=== PATIENT | female | born 1935 | race Caucasian/White ===

== ENCOUNTER 2016-07-19 15:49 | Inpatient (IN) | payer MEDICARE, OTHER ==
--- NOTE | ~2016-07-19 | HP ---
History And Physical [place] [id number] [facility] [place]. [address] NAME: IMELDA GOMES PAGE : 34 STATUS : ADM IN PAT#: [id number] AGE: 81 ADM/REG DATE : 07/19/16 MR#: [id number] REPORT SERV DATE: 07/20/16 DICTATED BY: JESÚS KERR DATE: 07/19/16 REPORT STATUS : Draft TRANSCRIBED BY: MODL DATE: 07/19/16 DATE OF ADMISSION: 07/19/2016 CHIEF COMPLAINT: Abdominal pain. HISTORY OF PRESENT ILLNESS: The patient is an 81-year-old female with past medical history of FREDDIE with CKD, followed by Dr. Norris. Additionally, she has history of hypertension, currently hypotensive and reported dementia per family members, who reports having worsening abdominal pain over the last week. Decreased p.o. intake over one to two weeks and overall functional decline over the last few years, most notably over the last month. Today, the patient reports having significant abdominal pain, but this morning was able to report that she did not want to go to the emergency room and fought off EMS that was asked to evaluate her, however, the patient slipped out throughout the night. This afternoon, the patient was still continuing to have abdominal pain, did not resist further evaluation, and was brought to emergency room. Symptoms have been continuous and abdominal in nature, constant, moderate severity, with decreased p.o. intake. Does not report a burning or pressure type pain, but does have a cramping type pain that is not radiating, associated with mild nausea, no vomiting. No fever, chills, or shortness of breath. Symptoms are worsened with palpation and relieved only by rest. The patient has had symptoms that are still currently present and reproducible. The patient does not quite respond to majority of questions at this time due to encephalopathy, but per family. REVIEW OF SYSTEMS: GENERAL: The patient has not had any fevers or chills. EYES: No visual change or pain reported. ENT: No sore throat or congestion reported. NEURO: No headache, but does have a history of dementia with acute confusion. SKIN: No rashes, but does have occasional bruising. RESPIRATORY: No shortness of breath or dyspnea on exertion. CV: No chest pain or palpitations. GI: Does have nausea, but no vomiting and does have abdominal pain. No dark stools. : No dysuria or urgency reported. MUSCULOSKELETAL: Does have atrophy of muscles, but no myalgias or arthralgias. ENDO: Increased fatigue, but no polyuria. HEME: No bleeding or petechiae. IMMUNOLOGIC: No rhinorrhea. PSYCH: No anxiety, but does have acute confusion. PAST MEDICAL HISTORY: Right eye, loss of vision with cataracts, reflux, hypertension, thyroid disease, CKD followed by Dr. Norris. FAMILY HISTORY: Noted for strokes and dialysis with family member also having transplant, heart disease, and hypertension. SOCIAL HISTORY: . No smoking. Does currently still use smokeless tobacco. No alcohol or illicits. History And Physical [address] [address] NAME: IMELDA GOMES PAGE : 34 STATUS : ADM IN [facility]#: [id number] AGE: 81 ADM/REG DATE : 07/19/16 MR#: [id number] REPORT SERV DATE: 07/20/16 DICTATED BY: JESÚS KERR DATE: 07/19/16 REPORT STATUS : Draft TRANSCRIBED BY: JAMEL DATE: 07/19/16 SURGERIES: Gallbladder and shoulder surgery to the family's best knowledge. MEDICATIONS: Tylenol, Norvasc was reduced to 2.5 daily from 5 b.i.d., Colace, BiDil, KCl. ALLERGIES: NO KNOWN DRUG ALLERGIES. PHYSICAL EXAMINATION: VITAL SIGNS: The patient's blood pressure 93/38 improved to 94/50, temperature 96.4, pulse 64, respirations 25 on 92% on room air. GENERAL: Frail, no acute distress, but does have mild cachexia and atrophy of temporal region. EYES: Does have right eye asymmetry to the left, chronic, with cataract history. ENT: Dry mucous membranes. Tongue midline. Nares patent. Poor dentition. RESPIRATORY: Initially tachypneic, but has improved with pain control. CHEST: Equal chest expansion. No acute cardiopulmonary findings. CV: Regular rate. No rubs. No pedal edema. GI: Mild tenderness to palpation. Negative rebound. : Deferred. MUSCULOSKELETAL: Atrophied muscle groups. EXTREMITIES: Moves all extremities with equal strength, but weak. SKIN: Warm, dry with mild tenting. LYMPHS: No cervical or supraclavicular lymphadenopathy. HEME: No bleeding. NEURO: Alert to person and family, but not oriented. Difficult to participate with full neuro exam. PSYCH: Calm. LABORATORY DATA: Initial blood glucose 33. ABG; pH of 7.13, pCO2 of 24, pO2 of 116, bicarb 7.9, repeat blood glucose 187. CMP; sodium 143, potassium 5.0, bicarb 9, BUN and creatinine 80 and 8.65, with a chloride of 116, glucose 202. LFTs within normal limits. Lipase 2723. Troponin negative. Lactate 0.9. CBC; WBC count 7.4 with H and H 7.5 and 23.8, MCV 93.[address] abdomen and pelvis, diffuse peripancreatic inflammatory changes suggesting acute pancreatitis pattern, small amount of ascites in pericolic gutters, diffuse infiltration mesenteric fat planes, small amount of pelvic ascites, partially decompressed stomach with a diffusely thickened appearance. Possible pancreatitis versus gastritis. Decompressed ascending, transverse, and descending colon. Limited to colon wall assessment, difficult to exclude underlying diffuse colitis pattern. ASSESSMENT AND PLAN: 1. Acute kidney injury with chronic kidney disease. 2. Acute metabolic acidosis. 3. Acute pancreatitis. 4. Hypoglycemia. 5. Anemia. History And Physical [address] [address] NAME: IMELDA GOMES PAGE : 34 STATUS : ADM IN [facility]#: [id number] AGE: 81 ADM/REG DATE : 07/19/16 MR#: [id number] REPORT SERV DATE: 07/20/16 DICTATED BY: JESÚS KERR DATE: 07/19/16 REPORT STATUS : Draft TRANSCRIBED BY: MODL DATE: 07/19/16 6. Failure to thrive. 7. Hypertension, with relative hypotension on arrival. 8. Hypothyroidism. 9. Systemic inflammatory response syndrome. 10.Acute encephalopathy. 11.Hip pain. PLAN: 1. For FREDDIE with CKD, likely secondary to volume depletion secondary to pancreatitis, decreased p.o. intake. Treat acute pancreatitis, colitis. Check lytes, urine lytes, and ultrasound. Has had decreased p.o. over one week. The patient is uremic, acidotic, with acute encephalopathy. Sees Dr. Norris as an outpatient. We will consult Nephrology. The patient is DNR/DNI per family. Reports that this has been the patient's consistent with her prior belief and would not want dialysis. We will do aggressive IV fluids, optimize lytes, and treat underlying pancreatitis and bicarb. 2. Acute metabolic acidosis. Bicarb and IV fluids in an attempt to reverse FREDDIE and treat acute pancreatitis. 3. Acute pancreatitis with abdominal pain. IV fluids. By monitoring the lipase, colitis, and supportive treatment as tolerated. Had gallbladder removal in the past. Currently, Olanta score is 1, however, LDH is still not present, still unable to complete Swetha score currently. SOFA score approximately 6, less than 33% mortality, however, ALATNA II score at 28 with greater than 51% mortality during this hospitalization. 4. Hypoglycemia. D5 half-normal saline, IV fluids. 5. Anemia. Monitor with a.m. labs. Check fecal occult blood test. Likely decompensated secondary to CKD. There are no reported signs and symptoms of blood loss. 6. Failure to thrive. Treat as above. 7. Hypertension with relative hypotension. Hold medications in the presence of FREDDIE and CKD. 8. Hypothyroidism. Off replacement over a year. 9. SIRS with tachypnea and temperature monitor. Her respiratory had already improving after giving IV fluids. Treat above, pancreatitis and FREDDIE. 10.Acute encephalopathy. Treat uremia. Does have baseline dementia. 11.Pain. Follow x-rays. 12.DO NOT RESUSCITATE/DO NOT INTUBATE. I discussed with Dr. Miner and family. The patient is most likely that she was DO NOT RESUSCITATE in the past, which has also been reconfirmed by multiple family members at bedside. Guarded prognosis. Discussed with the patient and family. We will additionally consult Palliative for symptom control and goals of care evaluation. DDN/MODL Jesús Kerr MD History And Physical [address] [place]. [address] NAME: IMELDA GOMES PAGE : 34 STATUS : ADM IN [facility]#: [id number] AGE: 81 ADM/REG DATE : 07/19/16 MR#: [id number] REPORT SERV DATE: 07/20/16 DICTATED BY: JESÚS KERR DATE: 07/19/16 REPORT STATUS : Draft TRANSCRIBED BY: JAMEL DATE: 07/19/16 / [id number] CC: Kwan Bradford M.D.
--- NOTE | ~2016-07-19 | IDS ---
Interim Discharge Summary [facility] [address] [place]. [address] NAME: IMELDA GOMES PAGE : 34 STATUS : [facility]M [facility]#: [id number] AGE: 81 ADM/REG DATE : 07/19/16 MR#: [id number] REPORT SERV DATE: 07/24/16 DICTATED BY: KATHARINA ALDRICH DATE: 07/24/16 REPORT STATUS : Draft TRANSCRIBED BY: MODL DATE: 07/24/16 ADMISSION DATE: 07/19/2016 DISCHARGE DATE: CONSULTING PHYSICIAN: [facility], Dr. Wong. INTERIM DIAGNOSES: 1. Acute kidney injury on chronic kidney disease 4. 2. Acute pancreatitis. 3. Right pneumonia. 4. Left pleural effusion. 5. Status post hypotension with history of hypertension. 6. Acute encephalopathy. 7. Systemic inflammatory response syndrome. 8. Severe protein calorie malnutrition. 9. Status post hypoglycemia. DIAGNOSTIC EXAMS: CAT scan of the abdomen and pelvis showing chronic, stable, 40% insufficiency fractures, T11-T12, diffuse peripancreatic inflammatory changes suggesting acute pancreatitis pattern, small amount of ascites both paracolic gutters and diffuse infiltration of the mesenteric fat planes, small amount of pelvic ascites, partially decompressed stomach with a diffusely thickened appearance, decompressed ascending, transverse, and descending colon, segmental size atelectasis, left posterior lung base. Chest x-ray showing no acute process. Renal ultrasound showing bilateral decreased renal size with renal cortical thinning and increased renal cortical echotexture compatible with aging and a component of medical renal disease, ascites. Right hip x-ray, no evidence of acute abnormality. Repeat chest x-ray showing new patchy consolidation at the right lung base with left basilar atelectasis and small to moderate left pleural fluid, stable enlargement of the cardiac silhouette with atherosclerotic change in the thoracic aorta. HOSPITAL COURSE: Please refer to the H and P done by Dr. Basilio dated 07/19/2016. Briefly, this is an 81-year-old female with a history of CKD, comes in for abdominal pain for one week, poor intake, and functional decline. The patient has CKD 4 and has been following with Dr. Norris and she told him that she does not want any kind of hemodialysis. Over the past week, the patient had a functional decline, poor p.o. intake, increasing abdominal pain, and change in mental status. She was then brought in here and seen by Dr. Basilio where she was found to have an FREDDIE and acute pancreatitis. The creatinine was found to be at 8.65. The patient had a poor urine output and we got Renal involved. They adjusted some of the medications. However, they agreed with us that she has a poor prognosis. Even though the creatinine improved to 6.28, her GFR really did not change. They recommended Hospice and signed off. Meanwhile, we got repeated x-ray because she was having increasing shortness of breath and desaturation and right now is on 5 L of oxygen. She was found to have right-sided pneumonia and started her on antibiotics. Unfortunately, we do not have any sputum to culture. The patient's mental status seems to be somewhat improving when we fixed the acidosis with a bicarb drip and she is able to take ice and sips of water but that is it. We discussed with the patient several times that she would be needing Hospice. They Interim Discharge Summary [address] [address] NAME: IMELDA GOMES PAGE : 34 STATUS : ADM IN [facility]#: [id number] AGE: 81 ADM/REG DATE : 07/19/16 MR#: [id number] REPORT SERV DATE: 07/24/16 DICTATED BY: KATHARINA ALDRICH. DATE: 07/24/16 REPORT STATUS : Draft TRANSCRIBED BY: JAMEL DATE: 07/24/16 saw 3 different hospice company already. They could not make up her mind and they want to see 2 more that goes to [place], [place] so that her PCP, Belkys Garcia, can follow her up as well. So right now we are continuing the supportive measures, monitoring her electrolytes, and kidney function. Hopefully, we can increase the diet and follow up her x- rays. Partner of mine will be following up the patient and hopefully that the patient will be going to Hospice once they decide on which company. RIYA/JAMEL Katharina Aldrich M.D. / [id number] CC: Kwan Bradford M.D.
--- NOTE | ~2016-07-19 | CN ---
Consultation Report [facility] [address] [place]. [address] NAME: IMELDA GOMES PAGE : 34 STATUS : ADM IN [facility]#: [id number] AGE: 81 ADM/REG DATE : 07/19/16 MR#: [id number] REPORT SERV DATE: 07/20/16 DICTATED BY: HERVE SCHAFER DATE: 07/20/16 REPORT STATUS : Draft TRANSCRIBED BY: MODL DATE: 07/20/16 NEPHROLOGY CONSULTATION. DATE OF CONSULTATION: 07/20/2016 REASON FOR CONSULT: Chronic kidney disease with acute kidney injury. HPI: Ms. Gomes is an 81-year-old white female with chronic kidney disease followed in the office of [facility] by Dr. Salo Norris. Her baseline creatinine is 1.8 to 2.2 range since 09/2015. She was last seen in 06/2016, at which time, her creatinine was 2.2 and urine protein to creatinine ratio was 613. She has a history of hypertension and dementia. She was admitted here yesterday with pancreatitis. CT without contrast showed diffuse pancreatitis without hydro. X-ray showed no hip fractures. No urine output is recorded overnight. Her lactate was 0.9 and procalcitonin was 0.30. Today, her creatinine is down to 8.0. Exam is limited because she is having a Hearn catheter placed at the time of the consult. PAST MEDICAL HISTORY: 1. Chronic kidney disease, baseline creatinine 1.8 to 2.2. 2. Proteinuria 613 mg. 3. History of osteoarthritis. 4. Anemia. 5. Hypertension. 6. Hypothyroidism. 7. Dementia. 8. Left eye blindness. MEDICATIONS ON ADMISSION: Amlodipine 2.5 mg daily, Colace, ISDN 20 mg twice a day, hydralazine 37.5 mg twice a day, and potassium 10 mEq daily. FAMILY HISTORY: Significant for ESRD and a family member with a renal transplant. SOCIAL HISTORY: Otherwise not obtainable in the patient's current condition. REVIEW OF SYSTEMS: Otherwise not obtainable in the patient's current condition. PHYSICAL EXAMINATION: VITAL SIGNS: On exam, temperature 97.3, pulse 95, respirations 20, blood pressure 127/59, 95% saturation on 2 L per nasal cannula. GENERAL: She is an ill-appearing elderly white female, who is critically ill. She is in no distress, having Hearn catheter placed by nursing staff. HEENT: Sclerae without icterus. Conjunctivae not injected. Oropharynx is clear. Mucous membranes are dry. No JVD. She has no dyspnea on 2 L per nasal cannula. Consultation Report [place] [address] [place]. [address] NAME: IMELDA GOMES PAGE : 34 STATUS : ADM IN PAT#: [id number] AGE: 81 ADM/REG DATE : 07/19/16 MR#: [id number] REPORT SERV DATE: 07/20/16 DICTATED BY: HERVE SCHAFER DATE: 07/20/16 REPORT STATUS : Draft TRANSCRIBED BY: MODL DATE: 07/20/16 HEART: Regular rate and rhythm on the monitor. ABDOMEN: Thin, soft, nondistended, mildly tender to palpation. EXTREMITIES: Without edema. SKIN: Without rash. MUSCULOSKELETAL: Without active tenosynovitis. NEURO: Deferred. Hearn catheter being placed. LABORATORY DATA: Sodium 146, potassium 4, bicarb 22, BUN 74, creatinine 8.0, GFR 4 mL/minute, calcium 5.8, magnesium 1.5, phosphorus 5.3, albumin 2.2. LFTs were normal. White count 7600, hemoglobin 8.7, and platelets 229,000. INR 1.4. ASSESSMENT AND PLAN: Ms. Gomes has chronic kidney disease, baseline creatinine 1.8 to 2.2, now with acute pancreatitis; acute kidney injury, which appears to be oligoanuric; anemia; hypoalbuminemia; hypocalcemia; hypotension; hypomagnesemia; acute pancreatitis; and anion gap metabolic acidosis. At this point, her acute kidney injury is likely multifactorial related to ATN from renal hypoperfusion due to low blood pressure on arrival possibly from SIRS versus third spacing from pancreatitis and subsequent intravascular volume depletion. Fluid resuscitate with IV fluids and albumin. Long discussion with family. She is not a dialysis candidate with her multiple comorbid illnesses and with family's previous discussions with Dr. Norris of Nephrology. Continue supportive care. Watch labs. Hopeful of renal recovery. Dialysis will not be offered should renal function deteriorate in the next 24 to 48 hours. We will follow closely with you. Appreciate consult. AILYN/JAMEL Herve Schafer M.D. / [id number] CC: Kwan Bradford M.D. Brant Holt, M.D.
--- NOTE | ~2016-07-19 | DS ---
Discharge Summary [place] [address] [facility] [place]. [address] NAME: IMELDA GOMES PAGE : 34 STATUS : ADM IN PAT#: [id number] AGE: 81 ADM/REG DATE : 07/19/16 MR#: [id number] REPORT SERV DATE: 07/26/16 DICTATED BY: MARCELO MONZON DATE: 07/26/16 REPORT STATUS : Draft TRANSCRIBED BY: MODL DATE: 07/26/16 ADMISSION DATE: 07/19/2016 DISCHARGE DATE: 07/26/2016 Please also refer to history of present illness dictated by Dr. Basilio on 07/20/2016. Please refer to interim discharge summary dictated by Dr. Bobby on 07/24/2016. I personally saw this patient only today on 07/26/2016. The patient was admitted by Dr. Basilio on 07/19/2016 and she was seen by Dr. Bobby until today, 07/26/2016. DISCHARGE DIAGNOSES: 1. Acute kidney injury on chronic kidney disease, stage 4 kidney disease, not a candidate for dialysis. 2. Acute pancreatitis. 3. Right-sided pneumonia. 4. Left pleural effusion. 5. Status post hypotension with a history of hypertension. 6. Acute encephalopathy. 7. Systemic inflammatory response syndrome. 8. Status post hypoglycemia. 9. Severe protein-calorie malnourishment. 10.Subclinical hypothyroidism. 11.Overall very poor prognosis, hospice recommended. CONSULTANTS ON THE CASE: Staff Developer, Dr. Wong. HOSPITAL COURSE: Per interim discharge summary dictated by Dr. Bobby. Today, when I saw the patient, the patient's family was looking at different hospices and finally, they chose [facility] per Dr. Belkys Garcia. The patient is going to hospice per recommendation of Nephrology and overall poor prognosis. The patient received six days of antibiotics for her pneumonia, IV Rocephin. We will give her also Ceftin 500 mg every 48 hours, two additional dosages and the doses adjusted per her glomerular filtration rate, which is very low, it is only 6%. The patient was recommended to use her home Norvasc only as needed for systolic blood pressure more than 130 and above. The patient to stop her potassium and other antihypertensive medications. She is okay to take Colace p.r.n. and Tylenol p.r.n. Also, it was recommended to crush medications and give with applesauce, this was discussed with the patient's daughter. She will go home with hospice. Home with [facility]. Everything was discussed with the patient and her daughters. Everything was discussed with Dr. Bobby as well. Discharge Summary [address] [place]. [address] NAME: IMELDA GOMES PAGE : 34 STATUS : ADM IN PAT#: [id number] AGE: 81 ADM/REG DATE : 07/19/16 MR#: [id number] REPORT SERV DATE: 07/26/16 DICTATED BY: MARCELO MONZON DATE: 07/26/16 REPORT STATUS : Draft TRANSCRIBED BY: MODJesus Alberto DATE: 07/26/16 MG/JAMEL Marcelo Monzon M.D. / [id number] CC: Kwan Alvarez M.D. Nathan Chamberlain, M.D.
[~2016-07-19 15:49] MED LIST: AMIT50 PO; BENEFIBER PO; BIDIL20/37 PO; BIST PO; CELEBREX2 PO; DSS PO; DURICEF PO; MCZ25 PO; MIRALAXPKT PO; NORCO1 TA2 PO; NORV5 PO; PR12.5 PO; PR25 PO; PRILOSEC40 MG PO; PROTONIX PO; SYN.025B PO; SYN.05 PO; ULTRAM50 PO; V5 PO; VITAMIN B 12 IM; ZANTAC 75 PO; ZANTAC150 MG PO; ZOFRAN ODT4 MG PO
[2016-07-19 16:27] LABS: BE (BASE EXCESS) -19.6 MEQ/L (0 +/- 2.5); CARBOXYHEMOGLOBIN 1.3 % (0-3); HCO3 (ACTUAL BICARBONATE) 7.9 MEQ/L (23-27); HEMOBLOGIN CONTENT 8.1 G/DL (12-16); INSTRUMENT SERIAL # 8087; METHEMOGLOBIN 0.5 % (0-3); O2 CONTENT 11.2 VOL% (18-24); PCO2 (CO2 TENSION) 24 MMHG (35-45); PO2 (O2 TENSION) 116 MMHG (79-93); SAMPLE Arterial; pH 7.13 (7.37-7.43)
[2016-07-19 16:28] LABS: ALLENS TEST Pos
[2016-07-19] MEDS ORDERED: NORV25 PO (16:30)
[2016-07-19] MEDS ORDERED: T PO (16:31)
[2016-07-19] MEDS ORDERED: KDUR10 PO (16:31)
[2016-07-19] MEDS ORDERED: DSS PO (16:32)
[2016-07-19 16:45] LABS: BASOPHILS 0.1 %; BASOPHILS ABSOLUTE 0.01 10/3/uL (0.0-0.16); EOSINOPHILS 0.1 %; EOSINOPHILS ABSOLUTE 0.01 10/3/uL (0.0-0.53); ER CBC TAT 0 Hrs 08 Mins; IMMATURE GRANULOCYTES 0.7 %; IMMATURE GRANULOCYTES ABSOLUTE 0.05 10/3/uL (0.0-0.11); LYMPHOCYTES 9.8 %; LYMPHOCYTES ABSOLUTE 0.73 10/3/uL (0.67-4.30); MEAN CORPUSCULAR HEMOGLOB 29.4 pg (26.0-34.0); MEAN CORPUSCULAR VOLUME 93.3 fL (80-100); MEAN PLATELET VOLUME 10.4 fL (9.2-13.0); MONOCYTES 2.7 %; NEUTROPHILS 86.6 %; NEUTROPHILS ABSOLUTE 6.43 10/3/uL (2.02-8.40); NUCLEATED RED BLOOD CELLS 0.3 /100WBC (0-0); PLATELET COUNT 261 10/3/uL (150-400); RED CELL COUNT 2.55 10/6/uL (4.0-5.6); WHITE BLOOD CELLS 7.4 10/3/uL (4.5-10.5)
[2016-07-19 16:46] LABS: HEMATOCRIT 23.8 % (36.0-48.0); HEMOGLOBIN 7.5 g/dL (12.0-16.0); MANUAL DIFF NO %; MEAN CORPUS HGB CONC 31.5 g/dL (32.0-36.0); RBC DISTRIBUTION WIDTH 16.7 % (12.0-16.0)
[2016-07-19 16:49] LABS: INTERNATIONAL NORMAL RATI 1.4 UNITS (-); PARTIAL THROMBO TIME 39.8 SEC (22.5-37.2)
[2016-07-19 16:52] LABS: PROTIME (NOT ORD) 16.6 SEC (12.0-14.5)
[2016-07-19 17:04] LABS: ALKALINE PHOSPHATASE 75 U/L (45-117); CHLORIDE, SERUM 116 MMOL/L (96-112); SGOT(AST) 14 U/L (5-40); SODIUM, SERUM 143 MMOL/L (135-148); TOTAL BILIRUBIN 0.4 MG/DL (0-1.2); TROPONIN I <0.02 NG/ML (<0.05)
[2016-07-19 17:07] LABS: A/G RATIO 0.6 (0.7-1.9); ALBUMIN 2.3 G/DL (3.5-5.0); BUN (BLOOD UREA NITROGEN) 80 MG/DL (6-23); CALCIUM, SERUM 6.8 MG/DL (8.5-10.4); CO2 (CARBON DIOXIDE) 9 MMOL/L (24-34); CREATININE 8.65 MG/DL (0.55-1.02); GFR AFRICAN AMERICAN 4 ML/MIN (>=60); GFR NON AFRICAN AMERICAN 4 ML/MIN (>=60); GLOBULIN 3.6 G/DL (2.5-4.1); GLUCOSE, SERUM 202 MG/DL (60-99); LACTATE 0.9 MMOL/L (0.3-2.4); SGPT(ALT) < 6 U/L (5-65); TOTAL PROTEIN 5.9 G/DL (6.0-8.5)
[2016-07-19 17:23] LABS: BAND NEUTROPHILS 15 %; ER DIFF TAT 0 Hrs 46 Mins; LYMPHOCYTES 6 %; LYMPHOCYTES ABSOLUTE (CALC) 0.44 10/3/uL (0.67-4.30); NEUTROPHILS ABSOLUTE (CALC) 6.96 10/3/uL (2.02-8.40); SEGMENTED NEUTROPHIL (0) 79 %; TOTAL NUCLEATED CELLS 100
[2016-07-19 17:24] LABS: PLATELET ESTIMATE ADQ (ADEQUATE); RBC MORPHOLOGY NORM (NORMAL)
[2016-07-20 03:18] LABS: FERRITIN 372 NG/ML (8-252); IRON BINDING CAPACITY 115 MCG/DL (225-410); IRON, SERUM 49 MCG/DL (35-150)
[2016-07-20 05:54] LABS: BASOPHILS 0.1 %; BASOPHILS ABSOLUTE 0.01 10/3/uL (0.0-0.16); EOSINOPHILS 0 %; HEMOGLOBIN 8.7 g/dL (12.0-16.0); IMMATURE GRANULOCYTES 0.3 %; IMMATURE GRANULOCYTES ABSOLUTE 0.02 10/3/uL (0.0-0.11); LYMPHOCYTES 6.9 %; LYMPHOCYTES ABSOLUTE 0.52 10/3/uL (0.67-4.30); MANUAL DIFF NO %; MEAN CORPUS HGB CONC 33.5 g/dL (32.0-36.0); MEAN CORPUSCULAR HEMOGLOB 29.8 pg (26.0-34.0); MEAN PLATELET VOLUME 10.9 fL (9.2-13.0); MONOCYTES 4.6 %; MONOCYTES ABSOLUTE 0.35 10/3/uL (0.21-1.20); NEUTROPHILS 88.1 %; NEUTROPHILS ABSOLUTE 6.68 10/3/uL (2.02-8.40); PLATELET COUNT 229 10/3/uL (150-400); RBC DISTRIBUTION WIDTH 16.4 % (12.0-16.0); RED CELL COUNT 2.92 10/6/uL (4.0-5.6); WHITE BLOOD CELLS 7.6 10/3/uL (4.5-10.5)
[2016-07-20 05:55] LABS: RETICULOCYTE COUNT 1.3 % (0.5-2.5); RETICULOCYTE COUNT ABSOLUTE 36.4 10/3/uL (20.2-119.8)
[2016-07-20 06:14] LABS: ALBUMIN 2.2 G/DL (3.5-5.0); BUN (BLOOD UREA NITROGEN) 74 MG/DL (6-23); CALCIUM, SERUM 5.8 MG/DL (8.5-10.4); CHLORIDE, SERUM 111 MMOL/L (96-112); CHOL/HDL RATIO(NOT ORDER) 2.8 (0-5); CHOLESTEROL 97 MG/DL (< 200); CO2 (CARBON DIOXIDE) 22 MMOL/L (24-34); CREATININE 8.04 MG/DL (0.55-1.02); GFR AFRICAN AMERICAN 5 ML/MIN (>=60); GFR NON AFRICAN AMERICAN 4 ML/MIN (>=60); GLUCOSE, SERUM 148 MG/DL (60-99); HDL CHOLESTEROL 35 MG/DL (> 49); LDL CHOLESTEROL 43 MG/DL (< 130); NON-HDL CHOLESTEROL 62 MG/DL (< 160); PHOSPHORUS, SERUM 5.3 MG/DL (2.5-4.5); PREALBUMIN 4.3 MG/DL (17.0-43.0); SODIUM, SERUM 146 MMOL/L (135-148); TRIGLYCERIDE 98 MG/DL (< 150)
[2016-07-20 22:22] LABS: ASCORBIC ACID (UR NOT ORDER) NEG (NEG); BILIRUBIN, URINE NEGATIVE (NEG); KETONE, URINE NEGATIVE (NEG); LEUKOCYTE ESTERASE(NOT OR TRACE (NEG); WBC (NOT ORDERED) (RFLEX) 9 (0-5)
[2016-07-21 06:02] LABS: A/G RATIO 0.7 (0.7-1.9); ALBUMIN 2.4 G/DL (3.5-5.0); ALKALINE PHOSPHATASE 73 U/L (45-117); CHLORIDE, SERUM 109 MMOL/L (96-112); CO2 (CARBON DIOXIDE) 23 MMOL/L (24-34); GLOBULIN 3.3 G/DL (2.5-4.1); POTASSIUM, SERUM 3.6 MMOL/L (3.5-5.3); SGOT(AST) 14 U/L (5-40); SGPT(ALT) 8 U/L (5-65); SODIUM, SERUM 146 MMOL/L (135-148); TOTAL BILIRUBIN 0.5 MG/DL (0-1.2); TOTAL PROTEIN 5.7 G/DL (6.0-8.5)
[2016-07-21 06:03] LABS: BUN (BLOOD UREA NITROGEN) 69 MG/DL (6-23); CALCIUM, SERUM 6.5 MG/DL (8.5-10.4); CREATININE 7.33 MG/DL (0.55-1.02); GFR AFRICAN AMERICAN 5 ML/MIN (>=60); GFR NON AFRICAN AMERICAN 5 ML/MIN (>=60); GLUCOSE, SERUM 79 MG/DL (60-99)
[2016-07-22 07:32] LABS: BASOPHILS 0.1 %; BASOPHILS ABSOLUTE 0.01 10/3/uL (0.0-0.16); EOSINOPHILS 0.3 %; EOSINOPHILS ABSOLUTE 0.04 10/3/uL (0.0-0.53); HEMATOCRIT 25.5 % (36.0-48.0); HEMOGLOBIN 8.5 g/dL (12.0-16.0); IMMATURE GRANULOCYTES 0.2 %; IMMATURE GRANULOCYTES ABSOLUTE 0.03 10/3/uL (0.0-0.11); LYMPHOCYTES 17.7 %; LYMPHOCYTES ABSOLUTE 2.28 10/3/uL (0.67-4.30); MEAN CORPUS HGB CONC 33.3 g/dL (32.0-36.0); MEAN CORPUSCULAR HEMOGLOB 29.6 pg (26.0-34.0); MEAN CORPUSCULAR VOLUME 88.9 fL (80-100); MEAN PLATELET VOLUME 12.2 fL (9.2-13.0); MONOCYTES 3.3 %; MONOCYTES ABSOLUTE 0.43 10/3/uL (0.21-1.20); NEUTROPHILS 78.4 %; NEUTROPHILS ABSOLUTE 10.11 10/3/uL (2.02-8.40); RBC DISTRIBUTION WIDTH 16.3 % (12.0-16.0); RED CELL COUNT 2.87 10/6/uL (4.0-5.6)
[2016-07-22 07:37] LABS: PLATELET COUNT 139 10/3/uL (150-400); WHITE BLOOD CELLS 12.9 10/3/uL (4.5-10.5)
[2016-07-22 07:38] LABS: MANUAL DIFF NO %
[2016-07-22 07:39] LABS: ALBUMIN 1.9 G/DL (3.5-5.0); BUN (BLOOD UREA NITROGEN) 70 MG/DL (6-23); CHLORIDE, SERUM 109 MMOL/L (96-112); CO2 (CARBON DIOXIDE) 24 MMOL/L (24-34); CREATININE 6.95 MG/DL (0.55-1.02); GFR AFRICAN AMERICAN 6 ML/MIN (>=60); GFR NON AFRICAN AMERICAN 5 ML/MIN (>=60); GLUCOSE, SERUM 104 MG/DL (60-99); PHOSPHORUS, SERUM 4.4 MG/DL (2.5-4.5); POTASSIUM, SERUM 3.8 MMOL/L (3.5-5.3); SODIUM, SERUM 147 MMOL/L (135-148)
[2016-07-23 07:40] LABS: BUN (BLOOD UREA NITROGEN) 69 MG/DL (6-23); CALCIUM, SERUM 7.4 MG/DL (8.5-10.4); CHLORIDE, SERUM 109 MMOL/L (96-112); CO2 (CARBON DIOXIDE) 27 MMOL/L (24-34); CREATININE 6.64 MG/DL (0.55-1.02); GFR AFRICAN AMERICAN 6 ML/MIN (>=60); GFR NON AFRICAN AMERICAN 5 ML/MIN (>=60); GLUCOSE, SERUM 98 MG/DL (60-99); POTASSIUM, SERUM 3.5 MMOL/L (3.5-5.3); SODIUM, SERUM 147 MMOL/L (135-148)
[2016-07-23 07:42] LABS: BASOPHILS 0.1 %; BASOPHILS ABSOLUTE 0.01 10/3/uL (0.0-0.16); EOSINOPHILS 1.3 %; EOSINOPHILS ABSOLUTE 0.16 10/3/uL (0.0-0.53); HEMATOCRIT 26.9 % (36.0-48.0); IMMATURE GRANULOCYTES 0.4 %; IMMATURE GRANULOCYTES ABSOLUTE 0.05 10/3/uL (0.0-0.11); LYMPHOCYTES 21.9 %; LYMPHOCYTES ABSOLUTE 2.78 10/3/uL (0.67-4.30); MEAN CORPUS HGB CONC 33.5 g/dL (32.0-36.0); MEAN CORPUSCULAR HEMOGLOB 30.1 pg (26.0-34.0); MEAN PLATELET VOLUME 12.4 fL (9.2-13.0); MONOCYTES ABSOLUTE 0.63 10/3/uL (0.21-1.20); NEUTROPHILS 71.3 %; NEUTROPHILS ABSOLUTE 9.07 10/3/uL (2.02-8.40); PLATELET COUNT 137 10/3/uL (150-400); RED CELL COUNT 2.99 10/6/uL (4.0-5.6); WHITE BLOOD CELLS 12.7 10/3/uL (4.5-10.5)
[2016-07-23 07:44] LABS: MANUAL DIFF NO %
[2016-07-24 08:30] LABS: BUN (BLOOD UREA NITROGEN) 67 MG/DL (6-23); CALCIUM, SERUM 7.2 MG/DL (8.5-10.4); CHLORIDE, SERUM 107 MMOL/L (96-112); CO2 (CARBON DIOXIDE) 27 MMOL/L (24-34); CREATININE 6.28 MG/DL (0.55-1.02); GFR AFRICAN AMERICAN 7 ML/MIN (>=60); GFR NON AFRICAN AMERICAN 6 ML/MIN (>=60); GLUCOSE, SERUM 103 MG/DL (60-99); POTASSIUM, SERUM 3.5 MMOL/L (3.5-5.3); SODIUM, SERUM 146 MMOL/L (135-148)
[2016-07-25 08:56] LABS: BASOPHILS 0.4 %; BASOPHILS ABSOLUTE 0.04 10/3/uL (0.0-0.16); BUN (BLOOD UREA NITROGEN) 65 MG/DL (6-23); CALCIUM, SERUM 6.8 MG/DL (8.5-10.4); CHLORIDE, SERUM 107 MMOL/L (96-112); CO2 (CARBON DIOXIDE) 29 MMOL/L (24-34); EOSINOPHILS 1.7 %; EOSINOPHILS ABSOLUTE 0.17 10/3/uL (0.0-0.53); GFR AFRICAN AMERICAN 7 ML/MIN (>=60); GFR NON AFRICAN AMERICAN 6 ML/MIN (>=60); GLUCOSE, SERUM 103 MG/DL (60-99); HEMATOCRIT 24.3 % (36.0-48.0); HEMOGLOBIN 8.2 g/dL (12.0-16.0); IMMATURE GRANULOCYTES 0.8 %; IMMATURE GRANULOCYTES ABSOLUTE 0.08 10/3/uL (0.0-0.11); LYMPHOCYTES 20.8 %; LYMPHOCYTES ABSOLUTE 2.11 10/3/uL (0.67-4.30); MEAN CORPUS HGB CONC 33.7 g/dL (32.0-36.0); MEAN CORPUSCULAR HEMOGLOB 30.8 pg (26.0-34.0); MEAN CORPUSCULAR VOLUME 91.4 fL (80-100); MEAN PLATELET VOLUME 12.3 fL (9.2-13.0); MONOCYTES 7.9 %; NEUTROPHILS 68.4 %; NEUTROPHILS ABSOLUTE 6.94 10/3/uL (2.02-8.40); PLATELET COUNT 135 10/3/uL (150-400); POTASSIUM, SERUM 3.6 MMOL/L (3.5-5.3); RBC DISTRIBUTION WIDTH 15.5 % (12.0-16.0); RED CELL COUNT 2.66 10/6/uL (4.0-5.6); SODIUM, SERUM 147 MMOL/L (135-148); WHITE BLOOD CELLS 10.1 10/3/uL (4.5-10.5)
[2016-07-25 08:57] LABS: MANUAL DIFF NO %
[2016-07-26 06:48] LABS: HEMATOCRIT 26.3 % (36.0-48.0); HEMOGLOBIN 8.8 g/dL (12.0-16.0); MANUAL DIFF YES %; MEAN CORPUS HGB CONC 33.5 g/dL (32.0-36.0); MEAN CORPUSCULAR HEMOGLOB 30.7 pg (26.0-34.0); MEAN CORPUSCULAR VOLUME 91.6 fL (80-100); MEAN PLATELET VOLUME 12.3 fL (9.2-13.0); PLATELET COUNT 156 10/3/uL (150-400); RBC DISTRIBUTION WIDTH 15.5 % (12.0-16.0); RED CELL COUNT 2.87 10/6/uL (4.0-5.6); WHITE BLOOD CELLS 10.8 10/3/uL (4.5-10.5)
[2016-07-26 06:54] LABS: BUN (BLOOD UREA NITROGEN) 63 MG/DL (6-23); CHLORIDE, SERUM 108 MMOL/L (96-112); CO2 (CARBON DIOXIDE) 28 MMOL/L (24-34); CREATININE 5.91 MG/DL (0.55-1.02); GFR AFRICAN AMERICAN 7 ML/MIN (>=60); GFR NON AFRICAN AMERICAN 6 ML/MIN (>=60); GLUCOSE, SERUM 99 MG/DL (60-99); POTASSIUM, SERUM 3.9 MMOL/L (3.5-5.3); SODIUM, SERUM 146 MMOL/L (135-148)
[2016-07-26 06:55] LABS: CALCIUM, SERUM 6.9 MG/DL (8.5-10.4)
[2016-07-26 07:22] LABS: BAND NEUTROPHILS 8 %; EOSINOPHILS 2 %; EOSINOPHILS ABSOLUTE (CALC) 0.22 10/3/uL (0.0-0.53); LYMPHOCYTES 23 %; LYMPHOCYTES ABSOLUTE (CALC) 2.48 10/3/uL (0.67-4.30); MONOCYTES 7 %; MONOCYTES ABSOLUTE (CALC) 0.76 10/3/uL (0.21-1.20); NEUTROPHILS ABSOLUTE (CALC) 7.34 10/3/uL (2.02-8.40); PLATELET ESTIMATE ADQ (ADEQUATE); RBC MORPHOLOGY NORM (NORMAL); SEGMENTED NEUTROPHIL (0) 60 %; TOTAL NUCLEATED CELLS 100
[2016-07-26] MEDS ORDERED: CEFT5 PO (15:36)
== END 2016-07-26 16:16 | DRG 438 ==
LOC: ER 15:49 → 5SO 20:19
PROVIDERS: Hospitalist; Internal Medicine; Internal Medicine Nephrology; Student in an Organized Health Care Education/Training Program
DX: K85.90 Acute pancreatitis without necrosis or infection, unspecified (principal); G93.40 Encephalopathy, unspecified; N17.0 Acute kidney failure with tubular necrosis; E43 Unspecified severe protein-calorie malnutrition; J18.9 Pneumonia, unspecified organism; J90 Pleural effusion, not elsewhere classified; E87.2 Acidosis; R62.7 Adult failure to thrive; E03.9 Hypothyroidism, unspecified; M19.90 Unspecified osteoarthritis, unspecified site; H54.42 Blindness, left eye, normal vision right eye; Z79.899 Other long term (current) drug therapy; I12.9 Hypertensive chronic kidney disease with stage 1 through stage 4 chronic kidney disease, or unspecified chronic kidney disease; N18.9 Chronic kidney disease, unspecified; E83.42 Hypomagnesemia
CPT/HCPCS: 36600; 71010; 73502-RT; 74176; 76775; 80048; 80053; 80061; 80069; 81001; 82272; 82330; 82570; 82728; 82805; 82962; 83540; 83550; 83605; 83690; 83735; 83935; 84134; 84145; 84300; 84439; 84443; 84484; 85025; 85045; 85610; 85730; 96374; 96375; 99285; J0610; J1170; J1940; J3010; P9047